=== PATIENT | male | born 1995 | race Caucasian/White ===

== ENCOUNTER 2016-09-14 12:42 | Emergency (ER) | payer BC, MEDICAID ==
--- NOTE | 2016-09-14 14:42 | RAD ---
Indication: Right clavicle injury. 2 views of the right clavicle demonstrates no fracture. No other bone or joint abnormality is identified. IMPRESSION: No fracture of the right clavicle is noted.
--- NOTE | 2016-09-14 14:42 | RAD ---
Indication: Right shoulder pain injury. 3 views of the right shoulder demonstrates no fracture. No other bone or joint abnormality is identified. IMPRESSION: No fracture of the right shoulder is noted.
--- NOTE | 2016-09-14 15:11 | ED ---
Upper Extremity Pain - HPI Summary HPI Summary: Patient arrives to ED with CC of right shoulder injury after a cart johnson at work trapped his shoulder between the machine and the wall. He notes a 5/10 pain upon movement and 3/10 upon rest. Patient has full ROM, but is concerned d /t small erythematous area over anterior shoulder. He denies other injuries or hitting head. He states he has never injured the area before. He would like a note for work for light duty for today. Denies numbness/tingling or temperature changes. Denies elbow pain. - History of Current Complaint Chief Complaint: EDShouldChris Stated Complaint: RT SHOULDER INJURY Time Seen by Provider: 09/14/16 14:03 Hx Obtained From: Patient Mechanism Of Injury: Blunt Trauma Onset/Duration: Started Hours Ago Timing: Constant Severity Initially: Mild Severity Currently: Mild Pain Location: Shoulder - right Character: Dull Aggravating Factor(s): Movement, Lifting, Flexion, Internal/External Rotation Alleviating Factor(s): Nothing Associated Signs & Symptoms: Positive: Bruising - small erythematous 1x1 cm contusion located over anterior portion of shoulder - Risk Factors Non-Orthopedic Risk Factor: Negative DVT Risk Factors: Negative Septic Arthritis Risk Factor: Negative Compartment Syndrome Risk Factors: Pain - Allergies/Home Medications Allergies/Adverse Reactions: Allergies Allergy/AdvReac Type Severity Reaction Status Date / Time No Known Allergies Allergy Verified 09/14/16 12:53 PMH/Surg Hx/FS Hx/Imm Hx Previously Healthy: Yes Musculoskeletal History: Reports: Hx Scoliosis - Immunization History Hx Pertussis Vaccination: No Immunizations Up to Date: No Infectious Disease History: No Infectious Disease History: Denies: Traveled Outside the [place] in Last 30 Days - Family History Known Family History: Positive: Cardiac Disease - Social History Occupation: Employed Full-time Lives: With Family Alcohol Use: None Hx Substance Use: No Substance Use Type: Reports: None Hx Tobacco Use: Yes Smoking Status (MU): Heavy Every Day Tobacco Smoker Review of Systems Constitutional: Negative Cardiovascular: Negative Respiratory: Negative Gastrointestinal: Negative Positive: no symptoms reported, see HPI Positive: Myalgia - right shoulder Positive: Other - small erythematous 1x1 cm contusion located over anterior portion of shoulder Neurological: Negative Psychological: Normal All Other Systems Reviewed And Are Negative: Yes Physical Exam Triage Information Reviewed: Yes Vital Signs On Initial Exam: Initial Vitals Temp Pulse Resp BP Pulse Ox 98.3 F 83 16 115/65 100 09/14/16 12:53 09/14/16 12:53 09/14/16 12:53 09/14/16 12:53 09/14/16 12:53 Vital Signs Reviewed: Yes Appearance: Positive: Well-Appearing, No Pain Distress, Well-Nourished Skin: Positive: Warm, Skin Color Reflects Adequate Perfusion, Other - small erythematous 1x1 cm contusion located over anterior portion of right shoulder Head/Face: Positive: Normal Head/Face Inspection Eyes: Positive: EOMI, Conjunctiva Clear Neck: Positive: Supple, Nontender, No Lymphadenopathy Respiratory/Lung Sounds: Positive: Clear to Auscultation, Breath Sounds Present Cardiovascular: Positive: Normal, RRR, Pulses are Symmetrical in both Upper and Lower Extremities Musculoskeletal: Positive: Normal, Strength/ROM Intact, Other - passive and active ROM intact of right shoulder. Neer, Pena Jacky and yerguson test negative. Empty can and drop arm negative. no sulcus sign. forced adduction test positive for pain. otherwise negative shoulder examination. Neurological: Positive: Sensory/Motor Intact, Alert, Oriented to Person Place, Time, CN Intact II-III, Speech Normal Psychiatric: Positive: Normal AVPU Assessment: Alert - Katlyn Coma Scale Best Eye Response: 4 - Spontaneous Best Motor Response: 6 - Obeys Commands Best Verbal Response: 5 - Oriented Diagnostics - Vital Signs Vital Signs Temp Pulse Resp BP Pulse Ox 09/14/16 12:56 98.3 F 89 16 115/65 100 09/14/16 12:53 98.3 F 83 16 115/65 100 - Laboratory Lab Statement: Any lab studies that have been ordered have been reviewed, and results considered in the medical decision making process. Course/Dx - Course Course Of Treatment: Patient c/o right shoulder pain after shoulder was pinched between wall and cart machine. He notes to small 1X1 contusion over the anterior portion of the shoulder. Xrays: IMPRESSION: No fracture of the right clavicle is noted. IMPRESSION: No fracture of the right shoulder is noted. passive and active ROM intact of right shoulder. Neer, Pena Jacky and yerguson test negative. Empty can and drop arm negative. no sulcus sign. forced adduction test positive for pain. otherwise negative shoulder examination. Patient given restrictions for work for 1X day. - Diagnoses Differential Diagnosis/HQI/PQRI: Positive: Contusion, Fracture (Closed), Hematoma, Sprain Provider Diagnoses: Contusion of shoulder Discharge - Discharge Plan Condition: Stable Disposition: HOME Patient Education Materials: Contusion in Adults (ED) Forms: *Work Release Referrals: Neftaly Page MD [Primary Care Provider] - Additional Instructions: Ibuprofen 600mg three times daily as needed for pain. If symptoms become worse, or you feel you are unable to move the shoulder, come back to ED. Do not push, pull or lift over 10lbs for today. Moist heat to the area as needed for comfort. Images - Images Full Body (No Head): 1 - small 1X1 erythematous contusion marking with no abrasions or other lesions
[2016-09-14 15:30] VITALS: BP 116/71
== END 2016-09-14 15:29 | disposition home or self-care (01) ==
LOC: ED 12:42
DX: S40.011A Contusion of right shoulder, initial encounter (principal); S49.91XA Unspecified injury of right shoulder and upper arm, initial encounter; W23.0XXA Caught, crushed, jammed, or pinched between moving objects, initial encounter; Y93.9 Activity, unspecified; Y92.9 Unspecified place or not applicable; F17.210 Nicotine dependence, cigarettes, uncomplicated
CPT/HCPCS: 99282

== ENCOUNTER 2017-03-24 23:43 | Emergency (ER) | payer BC, MEDICAID ==
[2017-03-24 23:48] VITALS: BP 127/73
[2017-03-25] MEDS ORDERED: Cyclobenzaprine TAB* 10 MG PO ONE (00:35)
--- NOTE | 2017-03-25 00:35 | ED ---
Upper Extremity Pain - HPI Summary HPI Summary: 22M presents with left shoulder pain today. it is posterior aspect of shoulder. had pain there previous from cart accident at work. no numbness or tingling. has history of back pain. has full ROM with pain. is right handed. no new trauma. denies any catching to the shoulder or history of fracture. took ibuprofen for pain without relief. - History of Current Complaint Chief Complaint: EDExtremityUpper Stated Complaint: LEFT SHOULDER INJURY/PAIN Time Seen by Provider: 03/25/17 00:11 - Allergies/Home Medications Allergies/Adverse Reactions: Allergies Allergy/AdvReac Type Severity Reaction Status Date / Time No Known Allergies Allergy Verified 09/14/16 12:53 PMH/Surg Hx/FS Hx/Imm Hx Endocrine/Hematology History: Denies: Hx Anticoagulant Therapy Cardiovascular History: Denies: Hx Hypertension Musculoskeletal History: Reports: Hx Scoliosis Infectious Disease History: No Infectious Disease History: Denies: Traveled Outside the [place] in Last 30 Days - Family History Known Family History: Positive: Cardiac Disease - Social History Alcohol Use: None Hx Substance Use: No Substance Use Type: Reports: None Hx Tobacco Use: Yes Smoking Status (MU): Heavy Every Day Tobacco Smoker Review of Systems Negative: Fever Negative: Chest Pain Negative: Shortness Of Breath Positive: Myalgia - left shoulder pain All Other Systems Reviewed And Are Negative: Yes Physical Exam Triage Information Reviewed: Yes Vital Signs On Initial Exam: Initial Vitals Temp Pulse Resp BP Pulse Ox 97.8 F 81 16 127/73 100 03/24/17 23:46 03/24/17 23:46 03/24/17 23:46 03/24/17 23:46 03/24/17 23:46 Vital Signs Reviewed: Yes Appearance: Positive: Well-Appearing Skin: Positive: Warm, Dry Head/Face: Positive: Normal Head/Face Inspection Eyes: Positive: Normal, Conjunctiva Clear Respiratory/Lung Sounds: Positive: Clear to Auscultation, Breath Sounds Present Cardiovascular: Positive: Normal, RRR Musculoskeletal: Positive: Strength/ROM Intact - left shoulder with pain, Other - tender over posterior aspect left shoulder, good computer system technician strength, neg yearson, drop arm. pos das Neurological: Positive: Reflexes Intact - biceps Psychiatric: Positive: Normal - Katlyn Coma Scale Coma Scale Total: 15 Diagnostics - Vital Signs Vital Signs Temp Pulse Resp BP Pulse Ox 03/24/17 23:46 97.8 F 81 16 127/73 100 - Laboratory Lab Statement: Any lab studies that have been ordered have been reviewed, and results considered in the medical decision making process. - Radiology shoulder Xray Interpretation: No Acute Changes Radiology Interpretation Completed By: ED Physician Course/Dx - Course Course Of Treatment: 22M presents with left shoulder pain today. it is posterior aspect of shoulder. had pain there previous from cart accident at work. no numbness or tingling. has history of back pain. has full ROM with pain. is right handed. no new trauma. denies any catching to the shoulder or history of fracture. took ibuprofen for pain without relief. on exam tender over posterior aspect of shoulder, neg drop arm, yearsons, pos das. will treat with flexeril as believe is sprain but gave ortho referral if not improving. patient understand and agrees with plan. - Diagnoses Differential Diagnosis/HQI/PQRI: Positive: Fracture (Closed), Strain, Sprain Provider Diagnoses: Shoulder pain Discharge - Discharge Plan Condition: Good Disposition: HOME Prescriptions: Cyclobenzaprine TAB* [Flexeril 10 MG TAB*] 10 mg PO TID PRN #15 tab PRN Reason: Pain Patient Education Materials: Shoulder Pain (ED) Referrals: Neftaly Page MD [Primary Care Provider] - Gabriel Mitchell MD [Medical Doctor] - Additional Instructions: Take Tylenol and ibuprofen every 6 hours as needed for pain Take muscle relaxer three times a day Ice/heat Do range of motion activities for shoulder Follow up with primary care physician or ortho if no improvement Return to ED if develop any new or worsening symptoms
--- NOTE | 2017-03-25 07:51 | RAD ---
INDICATION: Left shoulder pain since injury 2 months earlier COMPARISON: None. TECHNIQUE: 4 views of the left shoulder were obtained. FINDINGS: The adequately corticated bones are in normal alignment. Joint spaces appear maintained. No fracture, dislocation or focal bony abnormality is seen. IMPRESSION: Normal radiograph of the left shoulder. If the patient's symptoms persist, follow-up imaging is recommended.
== END 2017-03-25 00:44 | disposition home or self-care (01) ==
LOC: ED 23:43
DX: M25.512 Pain in left shoulder (principal); F17.210 Nicotine dependence, cigarettes, uncomplicated
CPT/HCPCS: 99282; A9270-GY

== ENCOUNTER 2018-08-07 21:24 | Emergency (ER) | payer BC, MEDICAID ==
[2018-08-07 21:30] VITALS: BP 136/79
--- NOTE | 2018-08-07 21:32 | ED ---
Skin Complaint - HPI Summary HPI Summary: 23 yo male presents accompanied by law enforcement. He needs a blood draw for alcohol. Pt has no complaints at this time. - History of Current Complaint Chief Complaint: EDGeneral Time Seen by Provider: 08/07/18 21:31 Stated Complaint: LEGAL BLOOD DRAW PER POLICE Hx Obtained From: Patient Current Severity: None Pain Intensity: 0 - Allergy/Home Medications Allergies/Adverse Reactions: Allergies Allergy/AdvReac Type Severity Reaction Status Date / Time No Known Allergies Allergy Verified 08/07/18 21:30 PMH/Surg Hx/FS Hx/Imm Hx Endocrine/Hematology History: Denies: Hx Anticoagulant Therapy Cardiovascular History: Denies: Hx Hypertension Musculoskeletal History: Reports: Hx Scoliosis Infectious Disease History: No Infectious Disease History: Denies: Traveled Outside the [place] in Last 30 Days - Family History Known Family History: Positive: Cardiac Disease - Social History Alcohol Use: None Hx Substance Use: No Substance Use Type: Reports: None Hx Tobacco Use: Yes Smoking Status (MU): Heavy Every Day Tobacco Smoker Review of Systems Positive: Other - Blood draw for alcohol Eyes: Negative ENT: Negative Cardiovascular: Negative Respiratory: Negative Gastrointestinal: Negative Genitourinary: Negative Skin: Negative Neurological: Negative Psychological: Normal All Other Systems Reviewed And Are Negative: Yes Physical Exam - Summary Physical Exam Summary: GENERAL: NAD. WDWN. SKIN: No rashes, lesions, or lacerations. NECK: Supple. Nontender. No lymphadenopathy. CHEST: No accessory muscle use. Breathing comfortably and in no distress. CV: Pulses intact. Cap refill <2seconds NEURO: Alert. PSYCH: Age appropriate behavior. Triage Information Reviewed: Yes Vital Signs On Initial Exam: Initial Vitals Temp Pulse Resp BP Pulse Ox 99.4 F 95 16 136/79 100 08/07/18 21:27 08/07/18 21:27 08/07/18 21:27 08/07/18 21:27 08/07/18 21:27 Vital Signs Reviewed: Yes Diagnostics - Vital Signs Vital Signs Temp Pulse Resp BP Pulse Ox 08/07/18 21:27 99.4 F 95 16 136/79 100 - Laboratory Lab Statement: Any lab studies that have been ordered have been reviewed, and results considered in the medical decision making process. Course/Dx - Course Course Of Treatment: Blood draw done at request of pt and law enforcement. He will be discharged to law enforcement - Diagnoses Provider Diagnoses: Blood alcohol request Discharge - Sign-Out/Discharge Documenting (check all that apply): Patient Departure Patient Received Moderate/Deep Sedation with Procedure: No - Discharge Plan Condition: Stable Disposition: LAW ENFORCEMENT/COURT Referrals: Neftaly Page MD [Medical Doctor] - Additional Instructions: Your blood was drawn today and the police will follow up with you - Billing Disposition and Condition Condition: STABLE Disposition: Law Enforcement/Court
== END 2018-08-07 21:54 ==
LOC: ED 21:24
DX: Z02.83 Encounter for blood-alcohol and blood-drug test (principal); F17.200 Nicotine dependence, unspecified, uncomplicated
CPT/HCPCS: 99281

== ENCOUNTER 2019-01-03 22:31 | Emergency (ER) | payer BC, MEDICAID ==
--- NOTE | 2019-01-04 00:13 | ED ---
Complaint/Male - History of Current Complaint Chief Complaint: EDUrogenitalProblems Time Seen by Provider: 01/04/19 00:08 - Allergies/Home Medications Allergies/Adverse Reactions: Allergies Allergy/AdvReac Type Severity Reaction Status Date / Time No Known Allergies Allergy Verified 01/03/19 22:33 PMH/Surg Hx/FS Hx/Imm Hx Endocrine/Hematology History: Denies: Hx Anticoagulant Therapy Cardiovascular History: Denies: Hx Hypertension Musculoskeletal History: Reports: Hx Scoliosis Infectious Disease History: No Infectious Disease History: Denies: Traveled Outside the [place] in Last 30 Days - Family History Known Family History: Positive: Cardiac Disease - Social History Alcohol Use: None Hx Substance Use: No Substance Use Type: Reports: None Hx Tobacco Use: Yes Smoking Status (MU): Heavy Every Day Tobacco Smoker Physical Exam Vital Signs On Initial Exam: Initial Vitals Temp Pulse Resp BP Pulse Ox 98.9 F 79 16 118/78 98 01/03/19 22:32 01/03/19 22:32 01/03/19 22:32 01/03/19 22:32 01/03/19 22:32 Diagnostics - Vital Signs Vital Signs Temp Pulse Resp BP Pulse Ox 01/03/19 22:32 98.9 F 79 16 118/78 98 - Laboratory Lab Statement: Any lab studies that have been ordered have been reviewed, and results considered in the medical decision making process.
[2019-01-04] MEDS ORDERED: Lidocaine 1% MPF ** 5 ML VIAL IM ONE (01:09)
[2019-01-04] MEDS ORDERED: cefTRIAXone VIAL(*) 250 MG VIAL IM ONE (01:09)
[2019-01-04] MEDS ORDERED: DOXYcycline CAP(*) 100 MG PO ONE (01:09)
--- NOTE | 2019-01-04 01:13 | ED ---
GI/ HPI - HPI Summary HPI Summary: Patient complains of right testicular pain and swelling after rough sex 2 nights ago. Denies any fever, cough, sore throat, CP, SOB, N/3/D, abdominal pain, change in urine, change in BM, penile discharge or pain. - History of Current Complaint Chief Complaint: EDUrogenitalProblems Time Seen by Provider: 01/04/19 00:08 Stated Complaint: TESTICULAR PAIN PER PT Hx Obtained From: Patient Onset/Duration: Started Days Ago Timing: Constant Severity: Moderate Current Severity: Moderate Pain Intensity: 7 Location of Pain: Other Pain Characteristics: Dull, Aching - Allergy/Home Medications Allergies/Adverse Reactions: Allergies Allergy/AdvReac Type Severity Reaction Status Date / Time No Known Allergies Allergy Verified 01/03/19 22:33 PMH/Surg Hx/FS Hx/Imm Hx Endocrine/Hematology History: Denies: Hx Anticoagulant Therapy Cardiovascular History: Denies: Hx Hypertension History: Denies: Hx Dialysis Musculoskeletal History: Reports: Hx Scoliosis Sensory History: Denies: Hx Legally Blind Opthamlomology History: Denies: Hx Eye Prosthesis EENT History: Denies: Hx Deafness Neurological History: Denies: Hx Dementia Infectious Disease History: No Infectious Disease History: Denies: Traveled Outside the [place] in Last 30 Days - Family History Known Family History: Positive: Cardiac Disease - Social History Alcohol Use: None Hx Substance Use: No Substance Use Type: Reports: None Hx Tobacco Use: Yes Smoking Status (MU): Heavy Every Day Tobacco Smoker Review of Systems Constitutional: Negative Eyes: Negative ENT: Negative Cardiovascular: Negative Respiratory: Negative Gastrointestinal: Negative Genitourinary: Negative Musculoskeletal: Negative Skin: Negative Neurological: Negative Psychological: Normal All Other Systems Reviewed And Are Negative: Yes Physical Exam - Summary Physical Exam Summary: Right testicle swollen and tender to palpation. Epididymis swollen and tender. Normal lie of testicles. Normal exam of penis. Triage Information Reviewed: Yes Vital Signs On Initial Exam: Initial Vitals Temp Pulse Resp BP Pulse Ox 98.9 F 79 16 118/78 98 01/03/19 22:32 01/03/19 22:32 01/03/19 22:32 01/03/19 22:32 01/03/19 22:32 Vital Signs Reviewed: Yes Appearance: Positive: Well-Appearing Skin: Positive: Warm Head/Face: Positive: Normal Head/Face Inspection Eyes: Positive: Normal ENT: Positive: Normal ENT inspection Neck: Positive: Supple Respiratory/Lung Sounds: Positive: Clear to Auscultation Cardiovascular: Positive: Normal Abdomen Description: Positive: Nontender Male Genital Exam: Positive: No Hernia, Epididymal Tenderness, Testicular Tenderness (R). Negative: Erythema, Inguinal Tenderness, Lesions, Urethral Discharge Musculoskeletal: Positive: Normal Neurological: Positive: Normal Psychiatric: Positive: Normal AVPU Assessment: Alert - Katlyn Coma Scale Best Eye Response: 4 - Spontaneous Best Motor Response: 6 - Obeys Commands Best Verbal Response: 5 - Oriented Coma Scale Total: 15 Diagnostics - Vital Signs Vital Signs Temp Pulse Resp BP Pulse Ox 01/03/19 22:32 98.9 F 79 16 118/78 98 - Laboratory Lab Statement: Any lab studies that have been ordered have been reviewed, and results considered in the medical decision making process. GIGU Course/Dx - Course Course Of Treatment: Patient complains of right testicular pain and swelling after rough sex 2 nights ago. Denies any fever, cough, sore throat, CP, SOB, N/ 3/D, abdominal pain, change in urine, change in BM, penile discharge or pain. Vital signs within normal limits. Ultrasound testicles positive for epididymitis. Rocephin 250 mg IM and doxycycline 100 mg by mouth 1 here in the ED. Rx for doxycycline 10 days. - Diagnoses Provider Diagnoses: Right epididymitis Discharge - Sign-Out/Discharge Documenting (check all that apply): Patient Departure Patient Received Moderate/Deep Sedation with Procedure: No - Discharge Plan Condition: Stable Disposition: HOME Prescriptions: DOXYcycline CAP(*) [DOXYcycline 100MG CAP(*)] 100 mg PO BID 10 Days #20 cap Patient Education Materials: Epididymitis (ED) Referrals: No Primary Care Phys,NOPCP [Primary Care Provider] - Additional Instructions: Take antibiotics as directed. Alternate ibuprofen 600 mg with Tylenol 650 mg every 3 hours for pain. If pain lasts more than 10 days follow-up with urology Dr Mejía for further evaluation. - Billing Disposition and Condition Condition: STABLE Disposition: Home
[2019-01-04] MEDS ORDERED: Ondansetron INJ* 2 MG/ML VIAL IV ONE (01:18)
[2019-01-04 01:28] VITALS: BP 0/0
== END 2019-01-04 01:13 | disposition home or self-care (01) ==
LOC: ED 22:31
DX: N45.1 Epididymitis (principal); F17.200 Nicotine dependence, unspecified, uncomplicated
CPT/HCPCS: 76870; 96372; 99282; A9270-GY; J0696

== ENCOUNTER 2019-03-23 18:01 | Emergency (ER) | payer BC, MEDICAID ==
--- NOTE | 2019-03-23 18:22 | ED ---
Skin Complaint - HPI Summary HPI Summary: 24 yo male presents with tick bite to right thigh. He tells me that he noticed a tick attached to him this evening and removed it. Unsure how long it was attached. He has no symptoms at this time. He mentions that he still has a prescription for doxycycline at home from a previous skin infection. - History of Current Complaint Chief Complaint: EDAnimalBite Time Seen by Provider: 03/23/19 18:21 Stated Complaint: TICK BITE PER PT Hx Obtained From: Patient Current Severity: None Pain Intensity: 0 - Allergy/Home Medications Allergies/Adverse Reactions: Allergies Allergy/AdvReac Type Severity Reaction Status Date / Time No Known Allergies Allergy Verified 01/03/19 22:33 PMH/Surg Hx/FS Hx/Imm Hx Endocrine/Hematology History: Denies: Hx Anticoagulant Therapy Cardiovascular History: Denies: Hx Hypertension History: Denies: Hx Dialysis Musculoskeletal History: Reports: Hx Scoliosis Sensory History: Denies: Hx Eye Prosthesis, Hx Legally Blind, Hx Deafness Opthamlomology History: Denies: Hx Eye Prosthesis, Hx Legally Blind Neurological History: Denies: Hx Dementia - Surgical History Surgical History: None Infectious Disease History: No Infectious Disease History: Denies: Traveled Outside the [place] in Last 30 Days - Family History Known Family History: Positive: Cardiac Disease - Social History Lives: With Family Alcohol Use: None Hx Substance Use: No Substance Use Type: Reports: None Hx Tobacco Use: Yes Smoking Status (MU): Heavy Every Day Tobacco Smoker Review of Systems Constitutional: Negative Respiratory: Negative Gastrointestinal: Negative Skin: Other - Tick bite Positive: Headache Psychological: Normal All Other Systems Reviewed And Are Negative: No Physical Exam - Summary Physical Exam Summary: GENERAL: NAD. WDWN. No pain distress. SKIN: RIGHT THIGH: there is a 7mm diameter of mild erythema and edema with central 1mm area of superficial skin loss. No streaking, bleeding, or drainage. NECK: Supple. Nontender. No lymphadenopathy. CHEST: No accessory muscle use. Breathing comfortably and in no distress. CV: Pulses intact. Cap refill <2seconds NEURO: Alert. PSYCH: Age appropriate behavior. Triage Information Reviewed: Yes Vital Signs On Initial Exam: Initial Vitals Temp Pulse Resp BP Pulse Ox 98.9 F 68 18 130/77 100 03/23/19 18:02 03/23/19 18:02 03/23/19 18:02 03/23/19 18:02 03/23/19 18:02 Vital Signs Reviewed: Yes Procedures - Sedation Patient Received Moderate/Deep Sedation with Procedure: No Diagnostics - Vital Signs Vital Signs Temp Pulse Resp BP Pulse Ox 03/23/19 18:02 98.9 F 68 18 130/77 100 - Laboratory Lab Statement: Any lab studies that have been ordered have been reviewed, and results considered in the medical decision making process. Course/Dx - Course Course Of Treatment: Tick is with pt and does not appear engorged. He has a previous rx for doxycycline at home 100mg. Recommended to take 200mg one time for prophylactic dosing. Advised to monitor for signs/symptoms of lyme and be rechecked if he develops these - Diagnoses Provider Diagnoses: Tick bite Discharge ED - Sign-Out/Discharge Documenting (check all that apply): Patient Departure - Discharge Plan Condition: Stable Disposition: HOME Patient Education Materials: Lyme Disease (ED), Tick Bite (ED) Referrals: No Primary Care Phys,NOPCP [Primary Care Provider] - Additional Instructions: TICK BITE: You have been bitten by a tick. Once the tick is removed, these "bites" usually cause no problems. Tick fever, tick paralysis, Carrizo Spotted fever, and Lyme disease are uncommon -- but you should mention this tick bite to your doctor if you develop unusual symptoms in the next several weeks. If you develop any of the following, please see your physician promptly: (1) Fever, chills, or generalized malaise associated with a headache. (2) A red round area at the site of the bite (or elsewhere) (3) Joint pain, joint swelling or generalized weakness. (4) Redness, swelling, or drainage at the site of the bite. Ticks do not have a typical "head" attached to their body. There are mouth parts sticking out which they use to feed. If there are mouth parts left behind in the wound there is NO increased risk of Lyme infection or disease transmission. If mouth parts remain after tick removal, the best thing to do is apply warm soaks to the area 3-4 times per day to encourage the skin to expel the foreign material. WHEN A TICK IS NOT ENGORGED AND HAS BEEN ON LESS THAN 24 HOURS - THE RISK FOR LYME IS NEGLIGIBLE. YOU CAN REMOVE THE TICK AND OBSERVE THE AREA ON YOUR OWN. - Billing Disposition and Condition Condition: STABLE Disposition: Home - Attestation Statements Provider Attestation: I was available for consultation for this patient. I did not evaluate the patient or participate in any medical decision making or disposition decisions unless I am specifically named in the chart as having consulted on the patient. If I have consulted on the patient, please see my own ED note on the patient encounter. Francisco J Diaz MD
[2019-03-23 18:43] VITALS: BP 125/83
== END 2019-03-23 18:45 | disposition home or self-care (01) ==
LOC: ED 18:01
DX: S70.361A Insect bite (nonvenomous), right thigh, initial encounter (principal); F17.210 Nicotine dependence, cigarettes, uncomplicated; W57.XXXA Bitten or stung by nonvenomous insect and other nonvenomous arthropods, initial encounter; Y93.9 Activity, unspecified
CPT/HCPCS: 99281